=== PATIENT | male | born 1975 | race Caucasian/White ===

== ENCOUNTER → 2016-12-20 | Outpatient (CLI) | payer OTHER ==
--- NOTE | 2016-12-20 15:52 | REP ---
MAXILLOFACIAL CT WITHOUT CONTRAST: HISTORY: Chronic allergic rhinitis. Moderate mucosal thickening is present in the right ethmoid and maxillary sinuses. Mild mucosal thickening is present in the left ethmoid, maxillary and sphenoid sinuses. Minimal mucosal thickening is present in the frontal sinuses. The right sphenoid sinus is clear. Mucosal thickening involves the ostiomeatal units. The middle and inferior nasal turbinates are partially paradoxical. There is jovanni bullosa of the left middle nasal turbinate. There is minimal deviation of the nasal septum to the right. The cribriform plate, medial louis of the orbits and optic canals are intact. The carotid canals form a segment of the posterolateral louis of the sphenoid sinus. Calcifications are present of the tonsils. This is secondary to previous inflammatory disease. IMPRESSION: Sinus mucosal thickening as described above. Signed by Paramjit Gtz MD 12/20/2016 03:56 P
== END ==
LOC: M RAD 15:07
PROVIDERS: ATTEND Physician Assistant
DX: J30.9 Allergic rhinitis, unspecified (principal)